=== PATIENT | female | born 2005 | race Caucasian/White ===

== ENCOUNTER 2023-07-07 17:28 | Emergency (ER) | payer OTHER ==
[~2023-07-07 17:28] MED LIST: Iopamidol-370 76% 500 ML MDV (1 ML CHARGE) ONE
[2023-07-07] MEDS ORDERED: Sodium Chloride 0.9% 100 ML ONE (17:52)
[2023-07-07] MEDS ORDERED: CEFAZOLIN 1 GM VIAL ONE (17:52)
[2023-07-07] MEDS ORDERED: Morphine 4 MG/ML VIAL ONE (17:52)
[2023-07-07] MEDS ORDERED: Ondansetron PF 4 MG/2 ML Vial ONE (17:52)
[2023-07-07] MEDS ORDERED: Lidocaine 1% w/Epinephrine 1:100K 20 ML VIAL ONE (17:52)
[2023-07-07 17:56] LABS: #Monocytes 0.5 thou/uL (0.11-0.59); #Neutrophils 6.2 thou/uL (1.40-6.50); %Basophils 0.3 % (0.0-1.0); %Eosinophils 0.1 % (0.0-10.0); %Lymphocytes 15.6 % (28.0-48.0); %Monocytes 6.4 % (0.0-4.0); %Neutrophils 77.3 % (31.0-61.0); Hematocrit 36.3 % (36.0-47.0); Hemoglobin 11.3 g/dL (12.0-16.0); Mean Corpuscular HGB CONC 31.1 g/dL (32.0-36.0); Mean Corpuscular Hemoglobin 23.6 pg (25.0-35.0); Mean Corpuscular Volume 75.9 fl (78.0-98.0); Mean Platelet Volume 9.8 fL (7.4-10.4); Platelet Count 313 10x3/uL (130-400); RBC Distribution Width 13.6 % (11.5-14.5); Red Blood Cell (RBC) Count 4.78 mill/uL (4.00-5.20)
[2023-07-07 18:14] LABS: BHCG - Serum Negative (NEGATIVE); Pregs Control Background? CLEAR/WHITE (CLR/WHITE); Pregs Control Bar Appear? YES (CONTROL BAR)
[2023-07-07 18:22] LABS: ALT (SGPT) 9 U/L (8-55); AST (SGOT) 13 U/L (5-34); Albumin 4.3 g/dL (3.5-5.0); Alkaline Phosphatase 61 U/L (40-100); Anion Gap 12 mmol/L (10-20); BUN (Urea Nitrogen) 10 mg/dL (7.0-18.7); Bilirubin, Total 0.5 mg/dL (0.2-1.2); Calc. Creatinine Clearance 0 mL/min (70-130); Calcium 9.1 mg/dL (7.8-10.44); Carbon Dioxide 23 mmol/L (22-29); Chloride 107 mmol/L (98-107); Estimated GFR 117; Globulin 2.9 g/dL (2.4-3.5); Glucose 89 mg/dL (70-105); Lipase 22 U/L (8-78); Potassium 4.2 mmol/L (3.5-5.1); Protein, Total 7.2 g/dL (6.0-8.3); Sodium 138 mmol/L (136-145)
[2023-07-07] MEDS ORDERED: Bacitracin 1 PK ONE (19:56)
== END 2023-07-07 20:03 | disposition home or self-care (01) ==
LOC: ERS 17:28
DX: S81.811A Laceration without foreign body, right lower leg, initial encounter (principal); V29.99XA Rider (driver) (passenger) of other motorcycle injured in unspecified traffic accident, initial encounter
CPT/HCPCS: 12004; 71045; 72170; 74177; 80053; 83690; 84703; 85025; 96365; 96375; J0690; J2270; J2405; J3490; Q9967

== ENCOUNTER 2024-03-26 03:33 | Emergency (ER) | payer OTHER ==
[2024-03-26] MEDS ORDERED: Ibuprofen 800 MG TAB ONE (04:14)
[2024-03-26] MEDS ORDERED: Dexamethasone 20 MG/5 ML VIAL ONE (04:14)
== END 2024-03-26 05:31 | disposition home or self-care (01) ==
LOC: ERS 03:33
DX: J02.9 Acute pharyngitis, unspecified (principal)
CPT/HCPCS: 71045; J1100